=== PATIENT | female | born 1955 | race Caucasian/White ===

== ENCOUNTER 2019-01-20 05:48 | Day surgery (SDC) | payer BC, MEDICARE ==
[~2019-01-20] VITALS: Ht 167.6 cm; Wt 65.9 kg
[~2019-01-20 05:48] MED LIST: ESOM40CA PO; TEMA15CA6 PO
[2019-01-20 06:46] VITALS: Ht 167.6 cm; Wt 65.9 kg
[2019-01-20] MEDS ORDERED: TYLENOL (06:53)
[2019-01-20] MEDS ORDERED: PROPOFOL 200 MG INJ ONE (07:00)
--- NOTE | 2019-01-20 07:11 | PREAC ---
Date/Time of Note Date/Time of Note DATE: 01/20/19 TIME: 07:09 Anesthesia Eval and Record Evaluation Time Pre-Procedure Interview DATE: 01/20/19 TIME: 07:09 Age 63 Sex female NPO: 8 hrs Preoperative diagnosis abdominal pain Planned procedure EGD Past Medical History Past Medical History: Includes GI: GERD, Obesity Surgery & Anesthesia Issues No known issue Meds Anticoagulation: No Beta Nicole within 24 hr: No Reason Beta Nicole not given: Pt. not on B-Nicole Reported Medications [Tylenol] No Conflict Check 01/20/19 Discontinued Reported Medications Temazepam* (Restoril*) 15 Mg Capsule, 15 MG PO HS PRN for INSOMNIA, CAP 10/20/15 Esomeprazole Mag Trihydrate (Nexium) 40 Mg Capsule.dr, 40 MG PO DAILY, #30 CAP 10/20/15 Meds reviewed: Yes Allergies Coded Allergies: No Known Allergies (Verified Allergy, Unknown, 10/20/15) Allergies Reviewed: Yes Labs/Studies Labs Reviewed: Reviewed by anesthesiologist test: N/A Studies: ECG Pre-procedure Exam Last vitals BP:112/56, P:78, Spo2:100%, T:98,9 Airway: Adequate mouth opening, Adequate thyromental dist Mallampati: Mallampati II Teeth: Normal Lung: Normal Heart: Normal ASA Physical Status ASA physical status: 3 Emergency: None Planned Anesthetic General/MAC: MAC Planned Pain Management Parenteral pain med Pre-operative Attestations Prior to commencing anesthesia and surgery, the patient was re-evaluated, there was verification of: *The patient's identity *The results of appropriate recent lab work and preoperative vital signs *The above evaluation not changing prior to induction *Anesthetic plan, risk benefits, alternative and complications discussed with patient/family; questions answered; patient/family understands, accepts and wi shes to proceed. SOBIA YAN MD Jan 20, 2019 07:11
[2019-01-20] MEDS ORDERED: PROPOFOL 40 ML ONE (07:12)
[2019-01-20] MEDS ORDERED: LIDOCAINE 2% (SDV) 5 ML INJ ONE (07:12)
[2019-01-20 07:18] VITALS: BP 146/60; PULSE 95; RESP 11
--- NOTE | 2019-01-20 07:36 | PAC ---
Date/Time of Note Date/Time of Note DATE: 01/20/19 TIME: 07:34 Post-Anesthesia Notes Post-Anesthesia Note Last documented vital signs Vital Signs Date Temp Pulse Resp B/P (MAP) Pulse Ox O2 O2 Flow FiO2 Time Delivery Rate 01/20/19 98.0 95 11 146/60 98 Room Air 07:18 (88) Activity: WNL Respiratory function: WNL Cardiovascular function: WNL Mental status: Baseline Pain reasonably controlled: Yes Hydration appropriate: Yes Nausea/Vomiting absent: Yes Comments BP:118/67, P:68, Spo2:100%, T:98,9 SOBIA YAN MD Jan 20, 2019 07:36
[2019-01-20 07:59] VITALS: BP 123/64; PULSE 72; RESP 20
== END 2019-01-20 08:45 | disposition home or self-care (01) ==
LOC: GIL 05:48
PROVIDERS: ATTEND Internal Medicine Gastroenterology
DX: K44.9 Diaphragmatic hernia without obstruction or gangrene (principal); K21.0 Gastro-esophageal reflux disease with esophagitis; D13.1 Benign neoplasm of stomach
CPT/HCPCS: 88305; 88312